=== PATIENT | male | born 2000 | race Caucasian/White ===

== ENCOUNTER 2019-01-10 12:25 | Outpatient (CLI) | payer SELFPAY ==
[2019-01-10 13:22] LABS: HCT 42.4 % (40.0-50.0); HGB 14.8 g/dL (13.5-17.5); Mean Corp. HGB Concentration 34.9 g/dL (32.0-36.0); Mean Corpuscular Hemoglobin 30.7 pg (27.0-33.0); Mean Platelet Volume 9.4 fL (8.0-11.0); Platelet Count 303 x1000/uL (130-400); RBC 4.82 m/cumm (4.50-6.00); RBC Distribution Width 13.2 % (11.8-14.1); White Blood Cell Count 9.13 k/cumm (4.4-10.8)
[2019-01-10 13:41] LABS: Anion Gap 8.9 mmol/L (3-11); BUN 12 mg/dL (7-18); CO2 28.1 mmol/L (21.0-32.0); CREATININE 0.96 mg/dL (0.70-1.30); Calcium 9.1 mg/dL (8.5-10.1); Chloride 104 mmol/L (98-107); Glucose 90 mg/dL (70-100); Magnesium 2.3 mg/dL (1.8-2.4); Potassium 4.2 mmol/L (3.5-5.1); Sodium 141 mmol/L (136-145)
[2019-01-10 14:18] LABS: Absolute Neutrophil Count 2.28 k/cumm (1.2-6.7)
[2019-01-10 14:19] LABS: Absolute Monocyte Count 1.55 k/cumm (0.11-0.7); Atypical Lymphocytes % 8
== END 2019-01-10 12:45 ==
PROVIDERS: Visit Provider Family Medicine
DX: R55 Syncope and collapse (principal)
CPT/HCPCS: 36415; 80048; 83735; 85025

== ENCOUNTER 2020-06-03 17:13 | Outpatient (REF) | payer SELFPAY ==
[2020-06-06 22:43] LABS: SARS-CoV-2 RNA Undetected (Undetected); SARS-CoV-2 Specimen Source Nasopharynx
== END 2020-06-03 17:33 ==
LOC: NCHCN 17:13
PROVIDERS: Visit Provider Nurse Practitioner Family
DX: Z20.828 Contact with and (suspected) exposure to other viral communicable diseases (principal)
CPT/HCPCS: U0003

== ENCOUNTER 2022-03-29 07:55 | Emergency (ER) | payer OTHER, SELFPAY ==
[2022-03-29 08:03] VITALS: BP 121/76; PULSE 85; TEMP 36.3; O2SAT 98
--- NOTE | 2022-03-29 08:06 | W.ED.GENAD ---
Discharge Plan Disposition Patient Disposition: HOME Condition: Stable Discharge Details Clinical Impression: Contusion of hand, left Primary Care Provider: Unknown,Unknown ED Provider: Garrick Davidson Home Meds and New Rx's Prescriptions: Continued sertraline 100 mg tablet 100 mg PO DAILY albuterol sulfate [Ventolin HFA] 90 mcg/actuation HFA aerosol inhaler 2 puff inhalation Q6H PRN fluticasone propionate [Flonase Allergy Relief] 50 mcg/actuation spray,suspension 2 spray intranasal DAILY Rx Instructions: administer into each nostril varenicline 1 mg tablet 1 mg PO BID Discharge Instructions Instructions: Contusion in Adults (ED) Additional Instructions: Rest, elevate, cool compresses every 2 hours for 20 minutes. [id number] Tylenol and/or Motrin as directed for discomfort. Wear splint as needed, advance activity as tolerated. Please watch for new or worsening symptoms and return to the ER for any concerns. Lastly, if symptoms not improving with conservative measures over the next few days I recommend following up with your primary care provider for further evaluation of your injury. 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 Denies any other injury, numbness, tingling, weakness. Will apply ice and obtain an x-ray to rule out any bony involvement. X-ray unremarkable. Discussed options, placed into a hand splint. Discussed conservative measures. Standard discharge and return precautions were provided. Patient understands, is agreeable to this plan, and has no additional questions or concerns upon discharge. This documentation was generated using [employer] system, please disregard any oddities of phrase or misspellings. Imaging Data Radiologic Study: Attestation: I personally reviewed and interpreted this imaging study as follows: Imaging: X-Ray Radiologist's impression: Exam(s) XR HAND LT COMPLETE EXAM: XR HAND LT COMPLETE CLINICAL HISTORY: crush injury. TECHNIQUE: 2D digital imaging was performed. Three views. COMPARISON: No exams were available for comparison FINDINGS: BONES: No acute fracture is present. No bony destructive lesion is seen. JOINTS: No dislocation present. SOFT TISSUE: Mild posterior swelling at the MCP level. IMPRESSION: No evidence of fracture. HPI General Mode of arrival: ambulatory. Date/Time Provider Initiated Documentation: 03/29/22 08:06. Limitations to Documentation: no limitations. Information obtained by: patient. History of Present Illness 21 year old M presents to the emergency department with the chief complaint of L hand injury, described as moderate, with intensity rated at 6. Quality is described as crushing, and is localized to the left and upper extremity. Patient reports no radiation. Patient started experiencing this hour(s) (1) and it has been constant. Immobilization improves symptom(s), Movement worsens symptoms . Patient notes no other symptoms.. Patient did receive the following treatments prior to arrival, none Related Data Home Medications Medication Instructions Recorded Confirmed albuterol sulfate 90 mcg/actuation 2 puff inhalation Q6H PRN 03/22/22 aerosol inhaler (Ventolin HFA) fluticasone propionate 50 2 spray intranasal DAILY 03/22/22 mcg/actuation nasal spray,suspension (Flonase Allergy Relief) sertraline 100 mg tablet 100 mg PO DAILY 03/22/22 03/29/22 varenicline 1 mg tablet 1 mg PO BID 03/22/22 03/29/22 Allergies Allergy/AdvReac Type Severity Reaction Status Date / Time meloxicam [From Mobic] Allergy Severe Verified 03/29/22 08:06 General Stated Complaint: Orthopedic KISHA: 4 Review of Systems Constitutional Constitutional: Denies fever(s) and Denies weakness Musculoskeletal Musculoskeletal: Denies deformity, Reports arthralgias, Reports joint swelling, Denies numbness, Denies stiffness and Reports tingling Integumentary/Breasts Skin/Breast: Denies erythema Neurologic Neurologic: Denies numbness, Reports tingling and Denies weakness PFSH All Active Problems (Updated 03/29/22 @ 09:04 by SORAYA Menendez) Contusion of hand, left (Acute) Medical History Concussion H/O [place]-Schlatter disease Social History Smoking/Tobacco Use Status: Current every day Tobacco Type: e-cigarettes Smoking risk assessment performed?: Yes Alcohol Intake: current Alcohol Intake frequency: holidays/special occasions only Drug use: Occasionally Substance use type: marijuana Do you feel safe at home: Yes Do you feel safe in your relationship?: Yes Exam Const General: cooperative, healthy appearing, comfortable and no acute distress Orientation: alert and awake [facility] Head: normal to inspection, normocephalic and atraumatic Eyes Conjunctivae: conjunctivae normal Neck Neck: normal visual inspection, trachea midline and supple Resp Effort & Inspection: normal respiratory effort and able to speak in complete sentences Cardio Rate: regular rate Rhythm: regular rhythm Skin General skin exam: no rashes or lesions noted Neuro General: patient alert, patient awake, moves all extremities and no focal motor deficits Cognition: normal cognition Speech: speech normal Gait: normal gait Motor: muscle tone normal throughout Sensory Exam: no sensory deficits noted Extrem General: full ROM and capillary refill normal Other: Right hand skin intact. Full range of motion. There is diffuse mild swelling over the second through fifth MCP joints worse over the second and third with mild ecchymosis as well. There is no obvious deformity. Normal capillary refill and radial pulse. Neuro, vascular, tendon intact. Psych Appearance: grossly normal Mental Status: mental status grossly normal Course Vital Signs Vital signs: Vital Signs Temperature 36.3 C L 03/29/22 08:03 Pulse 85 03/29/22 08:03 Blood Pressure 121/76 03/29/22 08:03 Pulse Oximetry 98 03/29/22 08:03 Temperature 36.3 C L 03/29/22 08:03 Temperature Source Temporal Artery Scan 03/29/22 08:03 Pulse 85 03/29/22 08:03 Blood Pressure 121/76 03/29/22 08:03 Blood Pressure Position Sitting 03/29/22 08:03 Pulse Oximetry 98 03/29/22 08:03 Oxygen Delivery Method Room Air 03/29/22 08:03 Oxygen Flow Rate 0 03/29/22 08:03
--- NOTE | 2022-03-29 08:50 | DI.RAD_ITS ---
Exam(s) XR HAND LT COMPLETE EXAM: XR HAND LT COMPLETE CLINICAL HISTORY: crush injury. TECHNIQUE: 2D digital imaging was performed. Three views. COMPARISON: No exams were available for comparison FINDINGS: BONES: No acute fracture is present. No bony destructive lesion is seen. JOINTS: No dislocation present. SOFT TISSUE: Mild posterior swelling at the MCP level. IMPRESSION: No evidence of fracture. DATA REPOSITORY: RADIATION DOSE DELIVERED:
== END 2022-03-29 09:33 | disposition home or self-care (01) ==
PROVIDERS: Emergency Provider Physician Assistant
DX: S60.222A Contusion of left hand, initial encounter (principal); W23.0XXA Caught, crushed, jammed, or pinched between moving objects, initial encounter; Y99.0 Civilian activity done for income or pay
CPT/HCPCS: 29125; 99283; 73130

== ENCOUNTER 2022-05-10 08:21 | Day surgery (SDC) | payer BC, SELFPAY ==
--- NOTE | 2022-05-10 07:21 | PDOC.DSDIS_ITS ---
Discharge Plan Disposition Patient Disposition: HOME Condition: Good Discharge Details Reason For Visit: Left wrist ganglion cyst Attending Provider: Marky Benavides Primary Care Provider: Stan Beltran Home Meds and New Rx's Prescriptions: New hydrocodone-acetaminophen 5-325 mg tablet 1 tab PO Q6H PRN (Reason: severe pain) Qty: 4 0RF Rx Instructions: Take one tablet up to every 6 hours as needed for severe postoperative pain acetaminophen 500 mg tablet 500 mg PO Q6H PRN (Reason: pain) Qty: 60 2RF ibuprofen 600 mg tablet 600 mg PO TID PRN (Reason: pain) Qty: 60 0RF Continued sertraline 100 mg tablet 100 mg PO DAILY albuterol sulfate [Ventolin HFA] 90 mcg/actuation HFA aerosol inhaler 2 puff inhalation Q6H PRN fluticasone propionate [Flonase Allergy Relief] 50 mcg/actuation spray,suspension 2 spray intranasal DAILY Rx Instructions: administer into each nostril varenicline 1 mg tablet 1 mg PO BID Discharge Instructions Additional Instructions: Wrist Cyst Excision Discharge Instructions Activity: You should keep the hand elevated as much as possible for the first few days. You may use the other fingers as tolerated but avoid trying to do too much too soon. You may perform light activities with the dressing in place. Wear brace for all activity. Dressing/Cast: Your dressing should should stay in place at all times for the next 3 days. After 3 days you may remove the YAIMA bandage but keep the Mepilex bandage in place for 1 week or until your follow-up appointment. If you remove Mepilex you should place a band-aide over the incision for a light dressing and change at least once daily until follow-up. Medications: - You should take Tylenol and Ibuprofen for baseline pain control. - You have Hydrocodone for breakthrough pain. - You may apply ice over the wrist. Follow-up: 7-10 days Referrals: Marky Benavides MD [ [facility] STAFF PHYSICIAN] - Equipment/Supplies: Brace Activity:: Elevate Remove Dressings/Wound Care:: 72 hours Shower/Bathe:: 72 hours Diet:: As Tolerated Discharge Orders Discharge Orders: Discharge Order (Routine); Ordered 05/10/22 Ordered By: Yovana Varela
[2022-05-10 08:35] VITALS: BP 122/66; PULSE 55; RESP 19; TEMP 37; O2SAT 97
--- NOTE | 2022-05-10 08:41 | ANES.PREOP_ITS ---
General Info Date of Service Date Performed: 05/10/22 Height: 5 ft 11 in Weight: 97.9 kg Body Mass Index (BMI): 30.1 Surgical Procedure: Operation Date: 05/10/22 09:40 Proposed Procedure Side Surgeon p Wrist Cyst Excision Left Marky Benavides MD Meds Allergies and Home Medications Allergies Allergy/AdvReac Type Severity Reaction Status Date / Time meloxicam [From Mobic] Allergy Severe Verified 05/10/22 08:34 Home Medication Medication Instructions Recorded albuterol sulfate 90 mcg/actuation 2 puff inhalation Q6H PRN 03/22/22 aerosol inhaler (Ventolin HFA) fluticasone propionate 50 2 spray intranasal DAILY 03/22/22 mcg/actuation nasal spray,suspension (Flonase Allergy Relief) sertraline 100 mg tablet 100 mg PO DAILY 03/22/22 varenicline 1 mg tablet 1 mg PO BID 03/22/22 Current Visit Medications: Current Medications Generic Name Dose Route Start Last Admin Trade Name Freq PRN Reason Stop Dose Admin Acetaminophen 650 mg 05/10/22 07:21 Acetaminophen 325 Mg Tab PO Q4H PRN PRN Hydrocodone Bitart/Acetaminophen 0 tab 05/10/22 07:21 Hydrocodone 5/Acetaminophen 325 Tab PO Q3H PRN PRN Pain Ringer's Solution 1,000 mls @ 80 mls/hr 05/10/22 06:00 IV 06/08/22 23:59 INFUSION ARTURO Cefazolin Sodium/Dextrose 2 gm in 50 mls @ 100 mls/hr 05/10/22 06:00 Ancef Duplex IVPB 05/10/22 16:00 PREOP ARTURO IV Miscellaneous Supplies 1 each 05/10/22 06:00 Iv Access IV 06/08/22 23:59 DIRECTED ARTURO Sodium Chloride 0 ml 05/10/22 06:00 Normal Saline Flush 10 Ml Syr IV 06/08/22 23:59 PRN PRN Sodium Chloride 0 ml 05/10/22 06:00 Normal Saline 10 Ml Vial IJ 06/08/22 23:59 DIRECTED PRN Sterile Water 0 ml 05/10/22 06:00 Water,Injection,Sterile 10 Ml Vial IJ 06/08/22 23:59 DIRECTED PRN PFSH Active Problems Active Problems: Problem Status Onset Code Ganglion cyst of dorsum of left wrist M67.432 Medical History Medical History Concussion Depression with anxiety H/O [place]-Schlatter disease Tobacco Smoking/Tobacco Use Status: Current every day Tobacco Type: e-cigarettes Alcohol Alcohol Intake: current Alcohol intake frequency: holidays/special occasions only Substance Use Substance use: Occasionally Substance use type: marijuana Vital Signs and Lab Results Vital Signs Most Recent Vital Signs in EMR: Most Recent Vital Signs Temp Pulse Resp BP Pulse Ox 37.0 C 55 L 19 122/66 97 05/10/22 08:35 05/10/22 08:35 05/10/22 08:35 05/10/22 08:35 05/10/22 08:35 Lab Results Blood Type / Crossmatch: No Data to Display Complete Blood Count: No Data to Display Complete Metabolic Panel: No Data to Display Liver Function Panel: No Data to Display Coagulation Panel: No Data to Display Cardiac Panel: No Data to Display Arterial Blood Gas: No Data to Display Venous Blood Gas: No Data to Display Pancreas Panel: No Data to Display Thyroid Panel: 2 No Data to Display Infectious Disease: No Data to Display Blood Cultures: No Data to Display Toxicology Panel: No Data to Display Anesthesia Assessment and Plan Anesthesia History Personal History: No History of Anesthesia Complications Family History: No Family History of Anesthesia Complications Exercise Tolerance Exercise Tolerance: Metabolic Equivalents>4 Pertinent Negatives Pertinent Negatives: No Symptoms of GERD Cardiac & Pulmonary Exam Cardiac Exam: Normal S1/S2 Heart Sounds Pulmonary Exam: Clear Bilateral Breath Sounds Implantable Cardiac Device Does patient have a Pacemaker or an ICD?: No Airway Exam Known Difficult Airway: No Mallampati Class: 1 Mouth Opening: Normal (> 3cm) Thyromental Distance: Greater than 3 cm Neck Range of Motion: Full ROM Neck Circumference: Normal Teeth Condition: Normal Dentition ASA Classification ASA Score: ASA 2 Emergency Case?: No NPO Status NPO Status: NPO Clears >2 hours, Solids >8 hours Anesthesia Plan Resuscitation Status: Full Code Anesthesia Technique: General Anesthesia Airway Planned: Natural Airway Monitors Used: Standard Monitors
[2022-05-10 08:43] VITALS: BMI 30.1
[2022-05-10] MEDS: Lactated Ringers 1,000 ML 80 ML IV (08:50)
[2022-05-10] MEDS: ceFAZolin 2 GM/50 ML BAG IVPB (09:19)
[2022-05-10] MEDS: Lidocaine 1% Multi-Dose W/EPI 1/100,000 50 ML VIAL (09:31)
[2022-05-10 10:06] VITALS: BP 101/54; PULSE 69; RESP 16; TEMP 36.4; O2SAT 96
--- NOTE | 2022-05-10 10:29 | W.ANESPOSTOP ---
Postoperative Evaluation Date, Time and Location Date Performed: 05/10/22 Time Performed: 10:29 Patient Location: Day Surgery Unit Vital Signs Most Recent Imported Vital Signs: Most Recent Vital Signs Temp Pulse Resp BP Pulse Ox 36.4 C L 69 16 101/54 L 96 05/10/22 10:06 05/10/22 10:06 05/10/22 10:06 05/10/22 10:06 05/10/22 10:06 Pain Score Most Recent Pain Score: Most Recent Pain Score Pain Level 0 05/10/22 10:06 Assessment Mental Status: Awake (Alert & Oriented to Patient Baseline) Airway and Respiratory Function: Patent airway with normal (patient baseline) respiratory exam Cardiovascular Function: Hemodynamically Stable Hydration Status: Adequately Hydrated Nausea & Vomiting: No Nausea or Vomiting Pain: Pt. Denies Any Pain Peripheral Nerve Block: Patient did not receive a nerve block
[2022-05-10 10:37] VITALS: BP 120/81; PULSE 67; RESP 18; TEMP 36.5; O2SAT 100
--- NOTE | 2022-05-10 11:47 | ROE_ITS ---
Date of service: 05/10/22 Time of Service: 10:00 Operative Note Operative Note DATE OF PROCEDURE: 05/10/22 PRE-OP DIAGNOSIS: Left Dorsal Wrist Ganglion Cyst POST-OP DIAGNOSIS: same PROCEDURE: Excision of dorsal wrist ganglion cyst - Left wrist SURGEON: Marky Benavides Refer to Anesthesia Record ESTIMATED BLOOD LOSS: 0 PATHOLOGY: none sent TOURNIQUET TIME: 15 COMPLICATIONS: None Patient was transported to: PACU Patient's condition: stable Indications: Alon is a 21 year old male who I have seen for a dorsal wrist ganglion cyst. It has continued to be bothersome despite some conservative options. Its size and interference with activities continues to cause problems. Therefore, I offered excision of the dorsal wrist cyst. I discussed the risks to include bleeding, infection, pain, stiffness, damage to nerve and vessels, recurrence. Despite these risks, she elects to proceed. Findings: There was a rounded ganglion cyst located deep to the extensor retinaculum arising from the dorsal carpus. Procedure Description: Alon was greeted in the preoperative holding area. Identity was confirmed and the correct site was identified and marked. Consent was reviewed the patient and signed. History and physical was updated. The patient to take not to the operating room placed in supine position. All bony prominences were well- padded. A nonsterile tourniquet was placed high up onto the left arm. The arms and prepped with ChloraPrep and draped in a standard fashion. The surgical site was marked on the skin and injected with 1% lidocaine with epinephrine buffered with sodium bicarbonate. The limb was exsanguinated and the tourniquet was inflated to 250 mmHg where it stayed for 15 minutes. The skin was incised sharply in a longitudinal fashion overlying the cyst prominence. Deeper dissection was carried out with tenotomy scissors and careful attention to neurovascular branches in this area. The extensor retinaculum was then incised longitudinally overlying the prominence of the mass. Then, the mass was identified and protected with dissection carried around. Once was fully identified it was deflated and the cyst stalk was followed down to the carpus. The cyst structure was resected and its origin from the carpus was opened with tenotomy scissors and rongeur. An arthrotomy was performed with a rongeur. The wound was then thoroughly irrigated. The tourniquet was deflated. There is no major bleeding in any other persistent ooze was cauterized with the bipolar electrocautery. The wound was dry. The extensor retinaculum was closed with a 2-0 Vicryl. The deep layer was reapproximated with a 3-0 Vicryl. The skin was closed with a running 4-0 Monocryl followed by skin glue, Mepilex dressing, and Vern wrap. The wrist was placed into a removable wrist brace. At the end the case all counts were correct. The patient was awakened from anesthesia and taken to the PACU in stable condition. There were no noted complications.
== END 2022-05-10 10:49 | disposition home or self-care (01) ==
PROVIDERS: PCP Physician Assistant; Visit Provider Student in an Organized Health Care Education/Training Program
PROC: (CPT 25111; principal; 2022-05-10 09:30)
DX: M67.432 Ganglion, left wrist (principal); F41.8 Other specified anxiety disorders; Z79.899 Other long term (current) drug therapy
CPT/HCPCS: 25111; J0690; J1885; J2250; J2405

== ENCOUNTER 2023-08-03 09:44 | Outpatient (CLI) | payer BC, SELFPAY ==
--- NOTE | 2023-08-03 09:30 | DI.RAD_ITS ---
Exam(s) XR WRIST RT COMPLETE EXAM: XR WRIST RT COMPLETE CLINICAL HISTORY: RIGHT WRIST PAIN. TECHNIQUE: 2D digital imaging was performed. Four views. COMPARISON: No exams were available for comparison FINDINGS: BONES: No acute fracture is present. No bony destructive lesion is seen. JOINTS: The carpal bones are normally aligned. SOFT TISSUE: Normal. IMPRESSION: Unremarkable radiographs of the right wrist. DATA REPOSITORY: RADIATION DOSE DELIVERED:
== END 2023-08-03 09:45 | disposition home or self-care (01) ==
LOC: DIORS 09:44
PROVIDERS: PCP Physician Assistant; Visit Provider Physician Assistant
DX: M25.531 Pain in right wrist (principal)
CPT/HCPCS: 73110

== ENCOUNTER 2025-06-23 22:24 | Emergency (ER) | payer BC, SELFPAY ==
[2025-06-23 22:27] VITALS: BP 141/92; PULSE 113; RESP 20; TEMP 36.7; O2SAT 99
--- NOTE | 2025-06-23 22:27 | W.ED.GENAD ---
Discharge Plan Disposition Patient Disposition: Home Condition: Good Discharge Details Clinical Impression: Irritation of left eye Primary Care Provider: Stan Beltran ED Provider: Joel Mathew [place] Meds and New Rx's Prescriptions: Continued sertraline 100 mg tablet 100 mg PO DAILY albuterol sulfate [Ventolin HFA] 90 mcg/actuation HFA aerosol inhaler 2 puff inhalation Q6H PRN varenicline tartrate 1 mg tablet 1 mg PO BID lamotrigine 200 mg tablet 200 mg PO DAILY Patient Comments: TAKE ONE TABLET BY MOUTH EVERY DAY FOR MOOD DISORDER dextroamphetamine-amphetamine 20 mg capsule,extended release 24hr 20 mg PO DAILY Patient Comments: TAKE ONE CAPSULE BY MOUTH EVERY DAYS bupropion HCl 150 mg tablet extended release 24 hr 150 mg PO DAILY Patient Comments: TAKE ONE TABLET BY MOUTH EVERY DAY FOR ADHD/NICOTINE DEPENDENCE nicotine 14 mg/24 hr patch 24 hour 1 patch transdermal Q24H acetaminophen 500 mg tablet 500 mg PO Q6H PRN (Reason: pain) Qty: 60 2RF ibuprofen 600 mg tablet 600 mg PO TID PRN (Reason: pain) Qty: 60 0RF Discharge Instructions Additional Instructions: You were seen in the ED for eye and throat irritation from glass breakage. Your exam including fluorescein staining of the eyes shows no corneal injury or foreign body. Suspect just irritated from the injury and should be fine. You may follow-up with [facility] if you continue to have discomfort after the next few days. You should return to the ED for significant eye pain, change in vision, other concerns. Referrals: [facility] [Outside] [facility] General Mode of arrival: ambulatory. Date/Time Provider Initiated Documentation: 06/23/25 22:27. Limitations to Documentation: no limitations. Information obtained by: patient and RN notes reviewed. HPI Narrative: Patient presents to ED with left eye irritation, concern for glass foreign body. Patient was trying to change a light bulb when the glass fixture slipped from his hand, struck the counter and burst into pieces. He had glass shards everywhere including feeling like he had got some in his eyes as well as potentially throat. He took a shower and irrigated out his eyes. Feels much better but he will occasionally feel like there is something still in the left eye. It is not a persistent sensation. Also seems to have some discomfort in the left upper throat area. He is not having difficulty swallowing. He has no large lacerations. Related Data Home Medications ?Medication ?Instructions ?Recorded ?Confirmed albuterol sulfate 90 mcg/actuation 2 puff inhalation Q6H PRN 03/22/22 06/23/25 aerosol inhaler (Ventolin HFA) sertraline 100 mg tablet 100 mg PO DAILY 03/22/22 06/23/25 varenicline tartrate 1 mg tablet 1 mg PO BID 03/22/22 06/23/25 acetaminophen 500 mg tablet 500 mg PO Q6H PRN pain #60 tabs 05/10/22 06/23/25 ibuprofen 600 mg tablet 600 mg PO TID PRN pain #60 tabs 05/10/22 06/23/25 bupropion HCl 150 mg 24 hr tablet, 150 mg PO DAILY 06/23/25 06/23/25 extended release dextroamphetamine-amphetamine ER 20 mg PO DAILY 06/23/25 06/23/25 20 mg 24hr capsule,extend release lamotrigine 200 mg tablet 200 mg PO DAILY 06/23/25 06/23/25 nicotine 14 mg/24 hr daily 1 patch transdermal Q24H 06/23/25 06/23/25 transdermal patch Previous Rx's ?Medication ?Instructions ?Recorded acetaminophen 500 mg tablet 500 mg PO Q6H PRN pain #60 tabs 05/10/22 ibuprofen 600 mg tablet 600 mg PO TID PRN pain #60 tabs 05/10/22 Allergies Allergy/AdvReac Type Severity Reaction Status Date / Time meloxicam (From [place]) Allergy Severe chest pain Verified 06/23/25 22:33 General KISHA: 4 Exam Narrative Exam Narrative: Const: WDWN male in NAD. VS per triage. HEENT: NC/AT. Normal facial exam. OP and posterior OP normal. No bleeding, no obvious FB. Eyes: PERRL and EOMI. No FB appreciated in either eye. Fluorescein staining negative for both eyes. Neck: Supple. Trachea midline. Lungs: Normal respiratory effort. Neuro: A+O x 3. Normal speech, mentation. Cranial nerves II - XII grossly intact. No gross motor or sensory deficit. Medical Decision Making Patient presenting to ED after dropping a glass fixture which then shattered on the counter dispersing glass dust and shards everywhere. Feels like he may have got some in his eye and potentially in his throat. He did take a shower and washed everything off. Is having no difficulty breathing. He is able to swallow. Reports some pain in the left upper posterior pharynx area as well as left eye. His exam is reassuring. No obvious foreign body noted in the eye, conjunctival sac, posterior oropharynx. Fluorescein staining of the eye is negative. Patient reassured. May follow-up with [facility] if continues to have significant eye discomfort over the next few days. Return precautions provided. PFSH All Active Problems Irritation of left eye (Acute) Right scapholunate ligament tear (Acute) Medical History Depression with anxiety Concussion H/O [place]-Schlatter disease Surgical History Ganglion cyst of dorsum of left wrist S/P Excision: 05/10/2022 Social History Smoking/Tobacco Use Status: Current every day Tobacco Type: e-cigarettes Smoking risk assessment performed?: Yes Alcohol Intake: current Alcohol Intake frequency: holidays/special occasions only Drug use: Daily Substance use type: marijuana Housing: house Current gender identity: male Do you feel safe at home: Yes Do you feel safe in your relationship?: Yes
[2025-06-23] MEDS: Tetracaine 0.5% 4 ML BTL OP (22:47)
[2025-06-23] MEDS: Fluorescein STRIPS 100/BOX 1 MG OP (22:48)
== END 2025-06-23 23:02 | disposition home or self-care (01) ==
PROVIDERS: Emergency Provider Emergency Medicine; PCP Physician Assistant
DX: H57.89 Other specified disorders of eye and adnexa (principal); F17.290 Nicotine dependence, other tobacco product, uncomplicated
CPT/HCPCS: 99283